=== PATIENT | female | born 2000 | race Caucasian/White ===

== ENCOUNTER 2019-09-23 15:30 | Observation (INO) | payer OTHER ==
[~2019-09-23] VITALS: Ht 162.6 cm; Wt 89.4 kg
[2019-09-23 17:23] LABS: BILIRUBIN,URINE NEGATIVE (NEGATIVE); BLOOD, URINE NEGATIVE (NEGATIVE); COLOR,URINE YELLOW (YELLOW); GLUCOSE,URINE NEGATIVE (NEGATIVE); KETONES,URINE 1+ (NEGATIVE); LEUKOCYTE ESTERASE ,URINE NEGATIVE (NEGATIVE); NITRITE, URINE NEGATIVE (NEGATIVE); PROTEIN URINE NEGATIVE (NEGATIVE); UROBILINOGEN,URINE 0.2 (0.2-1.0)
[2019-09-23 17:28] LABS: CLARITY/URINE SLIGHTLY HAZY (CLEAR)
[2019-09-23] MEDS ORDERED: TERBUTALINE SULFATE 1 MG/ML VIAL SUBCUT ONE (17:30)
[2019-09-23] MEDS ORDERED: TERBUTALINE SULFATE 1 MG/ML VIAL ONE (17:38)
== END 2019-09-23 17:55 | disposition home or self-care (01) ==
LOC: SPU 15:30
PROVIDERS: ADMIT Specialist; ATTEND Specialist
DX: O36.8130 Decreased fetal movements, third trimester, not applicable or unspecified (principal); O62.9 Abnormality of forces of labor, unspecified; Z88.0 Allergy status to penicillin; Z3A.30 30 weeks gestation of pregnancy
CPT/HCPCS: 76819; 81003; G0378; J3105; 59025; 59899

== ENCOUNTER 2019-10-03 12:15 | Observation (INO) | payer OTHER ==
[~2019-10-03] VITALS: Ht 165.1 cm; Wt 92.1 kg
[2019-10-03] MEDS ORDERED: TERBUTALINE SULFATE 1 MG/ML VIAL SUBCUT ONE (15:45)
[2019-10-03] MEDS ORDERED: BETAMET ACET/BETAMET NA PH 30 MG/5 ML VIAL IM ONE (15:45)
== END 2019-10-03 16:50 | disposition home or self-care (01) ==
LOC: SPU 12:15
PROVIDERS: ADMIT Specialist; ATTEND Specialist
DX: O62.9 Abnormality of forces of labor, unspecified (principal); Z3A.32 32 weeks gestation of pregnancy; Z88.0 Allergy status to penicillin
CPT/HCPCS: 76815; 96372; G0378; J0702; J3105

== ENCOUNTER 2019-10-04 15:38 | Observation (INO) | payer OTHER ==
[~2019-10-04] VITALS: Ht 162.6 cm; Wt 92.1 kg
[2019-10-04] MEDS ORDERED: BETAMET ACET/BETAMET NA PH 30 MG/5 ML VIAL IM SCH (15:45)
[2019-10-04] MEDS ORDERED: BETAMET ACET/BETAMET NA PH 30 MG/5 ML VIAL IM ONE (16:15)
== END 2019-10-04 16:30 | disposition home or self-care (01) ==
LOC: SPU 15:38
PROVIDERS: ADMIT Specialist; ATTEND Specialist
DX: O36.8130 Decreased fetal movements, third trimester, not applicable or unspecified (principal); Z3A.32 32 weeks gestation of pregnancy; Z88.0 Allergy status to penicillin
CPT/HCPCS: 96372; G0378; J0702

== ENCOUNTER 2019-10-12 08:30 | Observation (INO) | payer OTHER ==
[~2019-10-12] VITALS: Ht 162.6 cm; Wt 92.1 kg
== END 2019-10-12 11:00 | disposition home or self-care (01) ==
LOC: SPU 08:30
PROVIDERS: ADMIT Specialist; ATTEND Specialist
DX: O42.913 Preterm premature rupture of membranes, unspecified as to length of time between rupture and onset of labor, third trimester (principal); Z3A.33 33 weeks gestation of pregnancy; Z88.0 Allergy status to penicillin
CPT/HCPCS: 76805; G0378

== ENCOUNTER 2019-10-30 17:37 | Observation (INO) | payer OTHER ==
[2019-10-30] MEDS ORDERED: LR 1,000 ML IV SCH ×2 (18:05→22:01)
[2019-10-30] MEDS ORDERED: TERBUTALINE SULFATE 1 MG/ML VIAL SUBCUT PRN ×2 (18:15→22:15)
[2019-10-30] MEDS ORDERED: TERBUTALINE SULFATE 1 MG/ML VIAL ONE (18:30)
[2019-10-30] MEDS ORDERED: ACETAMINOPHEN 500 MG TABLET PO PRN (22:15)
[2019-10-30] MEDS ORDERED: ACETAMINOPHEN 500 MG TABLET ONE (22:30)
== END 2019-10-30 22:38 | disposition home or self-care (01) ==
LOC: SPU 17:37
PROVIDERS: ADMIT Specialist; ATTEND Specialist
DX: O62.9 Abnormality of forces of labor, unspecified (principal); Z3A.35 35 weeks gestation of pregnancy; Z88.0 Allergy status to penicillin
CPT/HCPCS: 76815; 96360; 96361; 96372; G0378; J3105

== ENCOUNTER 2019-11-03 18:09 | Observation (INO) | payer OTHER ==
[~2019-11-03] VITALS: Ht 162.6 cm; Wt 94.3 kg
== END 2019-11-03 18:44 | disposition home or self-care (01) ==
LOC: SPU 18:09
PROVIDERS: ADMIT Specialist; ATTEND Specialist
DX: O62.9 Abnormality of forces of labor, unspecified (principal); Z3A.36 36 weeks gestation of pregnancy
CPT/HCPCS: G0378

== ENCOUNTER 2019-11-13 12:24 | Outpatient (CLI) | payer OTHER, SELFPAY | END 2019-11-13 20:44 | disposition home or self-care (01) | LOC: SLB 12:24 | PROVIDERS: ATTEND Specialist | DX: Z20.828 Contact with and (suspected) exposure to other viral communicable diseases (principal) | CPT/HCPCS: C9803; U0003 ==